=== PATIENT | male | born 1960 | race Caucasian/White ===

== ENCOUNTER 2017-09-11 07:30 | Observation (INO) | payer BC ==
--- NOTE | 2017-09-12 12:59 | PDGENHP ---
History and Physical History and Physical: History and Physical PATIENT SIENA MAE DATE 1960 [ 57 yy 5 mm 25 dd ] ENC DATE 08/21/2017 1:40:00 PM PROVIDER ANA MELTON APPROVED BY ANA MELTON ON 09/12/2017-UPDATED REVISION DATE REFERRAL TYPE Name Vivi Hooper Type PCP/Referring Provider Address [address] Fax [phone] Phone PRIMARY CARE PHYSICIAN Name Larry Ng Type PCP/Referring Provider Address [address] [place], [place] Fax [phone] Phone CC/HPI Describe the reason for today's visit Cervical Spine Aristeo is a 57 year old with a little greater than a one year history of cervicalgia, pain in his right scapula and symptoms in his right thumb and first finger. He is right handed and he feels his right hand is weaker at times. He has a history of a time where he struck his head/neck snowboarding 12 years ago and then fell on his right arm 1.5 years ago. He is unsure if one of those incidents may have contributed to his symptoms. He feels some improvement of symptoms when putting arms over his head at times. 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 He has been participating in PT for 6 months without benefits. He has received one injection with Dr Villegas which offered him 3 days of benefits. He has taken one round of oral steroids which did not reduce his symptoms. He has taken high doses of NSAIDs which offered just minimal benefits. He is now taking 1800mg Gabapentin TID which does offer him some benefits. He presents today for a pre surgical appointment. He is scheduled for ACDF C5-6 , C6-[address] Campos on 09/11/17 at [facility]. ALLERGIES [ 1 ] Date Added: 02/28/2017 1:40:52 PM Allergy: QUINOLONES Note(s): ANTIBIOTICS VITALS [ 1 ] Date: 08/21/2017 3:31:18 PM ADDED BY Chloe Long ON 08/21/2017 2:31: 36 PM Temperature : 97.70 F. 36.5 C ADDED BY Chloe Long ON 08/21/2017 2:31:36 PM Blood Pressure : 138 / 82 ADDED BY Chloe Long ON 08/21/2017 2:31:36 PM Pulse: 74 beats/minute ADDED BY Chloe Long ON 08/21/2017 2:31:36 PM PE Neurological Orientation Oriented to: Person Place Situation Time Upper Extremity Deltoid (C5-6) Bilaterally 5/5 Biceps-Brachialis (C5-6) Bilaterally 5/5 Triceps (C7-8) Bilaterally 5/5 Wrist extensors (C7-8) Bilaterally 5/5 Wrist Flexors (C7-8 T1) Bilaterally 5/5 Digits extensors (C6-8) Bilaterally 5/5 Thenar (C8-T) Bilaterally 5/5 Interossel (C8-T1) Bilaterally 5/5 Deep Tendon Reflexes Brachioradialis (C5-6) Bilaterally 2+ Triceps (C6-8) Bilaterally 2+ Gait Normal gait Respiratory Normal work of breathing Constitutional Well developed Well nourished Alert and oriented Level of distress No acute distress Nourishment Well Nourished Well developed Appearance Healthy appearing ADDITIONAL ENCOUNTER INFORMATION This visit was face to face and 25-39 min long and over 50% of the time was spent on counseling and coordination of care. I agree with current diagnostics and treatment plan ADDED BY Andres Cerda ON 08/22/2017 4:58:48 AM CPT/ICD 91588 - OFFICE OUTPATIENT VISIT 25 MINUTES [Qty] = 1 Click here for External Information related to this code Click here for Additional Information related to this code M48.02-Spinal stenosis, cervical region Click here for External Information related to this code Click here for Additional Information related to this code M54.12-Radiculopathy, cervical region G8427 - [facility] [Qty] = 1 Click here for External Information related to this code Click here for Additional Information related to this code M48.02-Spinal stenosis, cervical region Click here for External Information related to this code Click here for Additional Information related to this code M54.12-Radiculopathy, cervical region ASMT/PLAN/REFERRALS Aristeo has right C6 radicular symptoms involving both surfaces of the 1-3 digits and the right scapula and MRI shows spondylosis and stenosis at C5-6, C6 -7. He has exhausted conservative management including PT, NSAIDs and injection treatments. He has elected to proceed with ACDF C5-6, C6-[address] Campos on . Surgery was canceled due to patient illness and is now rescheduled for 09/23/17. He did get an opinion from Dr Frye regarding disc replacement surgery but he did not find him to be a candidate due to his cervical kyphosis. He is currently taking 1800mg gabapentin daily and understands he will need to wean off following surgery. He wishes not to have a catheter placed for surgery if possible, he will speak with anesthesia and OR team in this regard. Plan: -Follow up two week post op -Call with questions/concerns M48.02 - Spinal stenosis, cervical region
[2017-09-23] MEDS ORDERED: ACETAMINOPHEN 500 MG TAB PO ONE (08:43)
[2017-09-23] MEDS ORDERED: GABAPENTIN 300 MG CAP PO ONE ×2 (08:43)
[2017-09-23] MEDS ORDERED: ceFAZolin 2 GM/SWFI 2 GM/20 ML SYR IVP ONE (08:43)
[2017-09-23] MEDS ORDERED: LIDOCAINE 1% 2 ML INJ ID PRN (08:45)
[2017-09-23] MEDS ORDERED: LR 1,000 ML IV ONE (08:45)
[2017-09-23] MEDS ORDERED: MIDAZOLAM 2 MG/2 ML VIAL IVP ONE (09:23)
--- NOTE | 2017-09-23 09:23 | PDANEPAE ---
ANE History of Present Illness c5-6 acdf with instrumentation ANE Past Medical History - Cardiovascular History Hx Hypertension: Yes Hx Arrhythmias: No Hx Chest Pain: No Hx Coronary Artery / Peripheral Vascular Disease: No Hx CHF / Valvular Disease: No Hx Palpitations: No - Pulmonary History Hx COPD: No Hx Asthma/Reactive Airway Disease: No Hx Recent Upper Respiratory Infection: No Hx Oxygen in Use at Home: No Hx Sleep Apnea: No Sleep Apnea Screening Result - Last Documented: Negative Pulmonary History Comment: ASTHMA SXS W/POST BRONCHIAL ILLNESSES - Neurologic History Hx Cerebrovascular Accident: No Hx Seizures: No Hx Dementia: No - Endocrine History Hx Diabetes: Yes Endocrine History Comment: DM II. A1C 6.3 -2 MOS AGO - Renal History Hx Renal Disorders: No - Liver History Hx Hepatic Disorders: No Hepatic History Comment: ENZYMES SLIGHTLY ELEV IN PAST - Neurological & Psychiatric Hx Hx Neurological and Psychiatric Disorders: No - Cancer History Hx Cancer: Yes Cancer History Comment: BASAL CELL - Congenital Disorder History Hx Congenital Disorders: No - GI History Hx Gastrointestinal Disorders: Yes Gastrointestinal History Comment: DIVERTICULITIS - IN PAST 10 YRS (1-2 EPISODES YRLY) - Other Health History Other Health History: NEG - Chronic Pain History Chronic Pain: Yes (NECK,SHOULDER & NUMBNESS R HAND/FINGERS) - Surgical History Prior Surgeries: HERNIA REPAIR. SCAR REVISION. COLONSOSCOPY ANE Review of Systems Review of systems is: negative Review of Systems: - Exercise capacity Exercise capacity: >=4 METS METS (RN): 4 METS ANE Patient History - Allergies Allergies/Adverse Reactions: ciprofloxacin [From Cipro] Allergy (Verified 05/21/13 02:28) ciprofloxacin HCl [From Cipro] Allergy (Verified 05/21/13 02:28) levofloxacin [From Levaquin] Allergy (Verified 08/14/17 16:46) Rash - Home Medications Home medications: home medication list seen and reviewed Home Medications: Lisinopril [Zestril 10 mg (RX)] 10 mg PO HS 05/21/13 [Last Taken 09/22/17 22:30] Gabapentin [Neurontin 300 MG (*)] 600 mg PO TID 08/07/17 [Last Taken 09/23/17 07 :00] metFORMIN HCL [Glucophage 500 mg (*)] 500 mg PO DAILY 08/07/17 [Last Taken 09/21] - NPO status NPO Since - Liquids (Date): 09/23/17 NPO Since - Liquids (Time): 06:30 NPO Since - Solids (Date): 09/22/17 NPO Since - Solids (Time): 19:00 - Anes Hx Anes Hx: no prior problems - Smoking Hx Smoking Status: Never smoked - Family Anes Hx Family Anes Hx: none Family Hx Anesthesia Complications: NEG ANE Labs/Vital Signs - Labs Result Diagrams: 09/23/17 09:20 - Vital Signs Blood Pressure: 132/91 Heart Rate: 83 Respiratory Rate: 16 O2 Sat (%): 92 Height: 182.88 cm Weight: 99.79 kg ANE Physical Exam - Airway Neck exam: FROM Mallampati Score: Class 3 Mouth exam: normal dental/mouth exam - Pulmonary Pulmonary: no respiratory distress - Cardiovascular Cardiovascular: regular rate and rhythym - ASA Status ASA Status: II ANE Anesthesia Plan Anesthesia Plan: general endotracheal anesthesia
[2017-09-23] MEDS ORDERED: BACITRACIN 50,000 UNITS/10 ML SYR IRR ONE (09:27)
[2017-09-23] MEDS ORDERED: CHLORHEXIDINE GLUC HIBICLENS 118 ML BTL TP ONE (09:27)
[2017-09-23] MEDS ORDERED: BUPIVACAINE 0.25% 30 ML SDV ONE (09:27)
[2017-09-23 09:46] LABS: ANION GAP 14 mEq/L (8-16); CALCIUM 9.6 mg/dL (8.5-10.4); CARBON DIOXIDE 20 mEq/l (22-31); CHLORIDE 104 mEq/L (97-110); CREATININE 0.9 mg/dL (0.7-1.3); GLOMERULAR FILTRATION RATE > 60; GLUCOSE 161 mg/dL (70-100); POTASSIUM 4.7 mEq/L (3.5-5.2); SODIUM 138 mEq/L (134-144)
[2017-09-23] MEDS ORDERED: THROMBIN (BOVINE) 5,000 UNIT VIAL TP ONE (09:49)
--- NOTE | 2017-09-23 10:30 | PDHPUP ---
History & Physical Update H&P update statement: This history and physical update is based on an assessment of the patient which was completed after admission or registration (within 24 hours), but prior to the surgery/procedure. H&P update: H&P reviewed & patient examined, no change in patient's condition since H&P completed
[2017-09-23] MEDS ORDERED: DEXAMETHASONE 4 MG/ML VIAL ONE (10:37)
[2017-09-23] MEDS ORDERED: LIDOCAINE 2% 100 MG/5 ML SYR ONE (10:37)
[2017-09-23] MEDS ORDERED: ROCURONIUM 50 MG/5 ML VIAL ONE (10:37)
[2017-09-23] MEDS ORDERED: ONDANSETRON 4 MG/2 ML VIAL ONE (10:37)
[2017-09-23] MEDS ORDERED: REMIFENTANIL HCL 1 MG VIAL ONE (10:39)
[2017-09-23] MEDS ORDERED: PROPOFOL 200 MG/20 ML VIAL ONE (10:39)
[2017-09-23] MEDS ORDERED: fentaNYL 100 MCG/2 ML INJ ONE ×2 (10:39→15:00)
[2017-09-23] MEDS ORDERED: PROPOFOL/EMULSION 500 MG/50 ML BOTTLE IV ONE (10:39)
[2017-09-23] MEDS ORDERED: HYDROmorphONE/DILAUDID 2 MG/ML INJ ONE (10:39)
[2017-09-23] MEDS ORDERED: BISACODYL 10 MG SUPP PR PRN (10:50)
[2017-09-23] MEDS ORDERED: POLYETHYLENE GLYCOL 3350 17 GM PKT PO PRN (10:50)
[2017-09-23] MEDS ORDERED: ONDANSETRON DISINTEGRATING 4 MG TAB PO PRN (10:50)
[2017-09-23] MEDS ORDERED: MAGNESIUM HYDROXIDE 30 ML UDCUP PO PRN (10:50)
[2017-09-23] MEDS ORDERED: diphenhydrAMINE 25 MG CAP PO PRN (10:50)
[2017-09-23] MEDS ORDERED: ONDANSETRON 4 MG/2 ML VIAL IVP PRN ×2 (10:50→13:24)
[2017-09-23] MEDS ORDERED: LACTULOSE 20 GM/30 ML UDCUP PO PRN (10:50)
[2017-09-23] MEDS ORDERED: PHENYLEPHRINE HCL 100 MCG/ML SYR ONE (11:28)
[2017-09-23] MEDS ORDERED: OXYCODONE/APAP 5/325 TAB PO PRN (13:24)
[2017-09-23] MEDS ORDERED: NALOXONE HCL 0.4 MG/ML INJ IVP PRN (13:24)
[2017-09-23] MEDS ORDERED: MEPERIDINE 25 MG/ML SYR IVP PRN (13:24)
[2017-09-23] MEDS ORDERED: HYDROmorphONE/DILAUDID 1 MG/ML INJ IVP PRN (13:24)
[2017-09-23] MEDS ORDERED: HYDROCODONE/APAP 5/325 TAB PO PRN (13:24)
[2017-09-23] MEDS ORDERED: ACETAMINOPHEN 500 MG TAB PO PRN (13:24)
[2017-09-23] MEDS ORDERED: PROMETHAZINE HCL 25 MG/ML INJ IVP PRN (13:24)
[2017-09-23] MEDS ORDERED: LABETALOL HCL 5 MG/ML 20 ML MDV IVP PRN (13:24)
[2017-09-23] MEDS ORDERED: fentaNYL 100 MCG/2 ML INJ IVP PRN (13:24)
--- NOTE | 2017-09-23 13:26 | POSTANESTH ---
Post Anesthetic Evaluation Cardiovascular Status: Normal, Stable, Similar to Pre-Op Cond Respiratory Status: Normal, Stable, Similar to Pre-op Cond. Level of Consciousness/Mental Status: Can Participate in Eval, Mildly Sleepy, Arousable Pain Control: Adequate, Prn Tx Ordered Nausea/Vomiting Control: Adequate, Prn Tx Ordered Complications Possibly Related to Anesthesia: None Noted
[2017-09-23] MEDS ORDERED: ceFAZolin 2 GM/DEXTROSE 100 ML IV SCH (14:00)
--- NOTE | 2017-09-23 14:48 | POSTOPPROG ---
Post Op Note Date of Operation: 09/23/17 Surgeon: Wagner Campos Journeyman Meat Cutter: Berna Romo NP Anesthesiologist: Agustín Anesthesia: GET(General Endotracheal) Pre-op Diagnosis: Cervical radiculopathy Procedure: ACDF C5-6, C6-7 Inf/Abcess present in the surg proc area at time of surgery?: No Depth: Deep Incisional (Fascial) EBL: 50-100 Total fluids administered: see anesthesia Complications: none Date of Surgery: 09/23/17 Post Op Day: 0 Assessment/Plan: 57 yr old s/p ACDF C5-6, C6-7 for right arm pain Plan: -PT/OT/ST -Wear collar at all times -Pain management -Pending post op xrays in am -Call neurosurgery with any questions/concerns Subjective: Patient waking up in PACU Objective: Waking up in PACU PERRLA 5/5 BUE, BLE sensation intact to light touch BLE Dressing CDI Collar in place Appropriate Neuro Check Frequency Ordered: Yes
[2017-09-23] MEDS: GABAPENTIN 300 MG CAP PO SCH ×2 (16:40→21:37)
[2017-09-23] MEDS: ceFAZolin 2 GM/DEXTROSE 100 ML IV SCH (17:06)
[2017-09-23] MEDS ORDERED: LISINOPRIL 10 MG TAB PO SCH (21:00)
[2017-09-23] MEDS: SENNOSIDES/DOCUSATE SODIUM TAB PO SCH (21:36)
[2017-09-23] MEDS: METHOCARBAMOL 750 MG TAB PO PRN (21:37)
[2017-09-23] MEDS: FAMOTIDINE 20 MG TAB PO SCH (21:38)
[2017-09-23] MEDS: oxyCODONE IR 5 MG TAB PO PRN (23:50)
--- NOTE | 2017-09-24 00:42 | GOP ---
[f rep st] OPERATIVE REPORT DATE OF OPERATION: 09/23/2017 SURGEON: Harley Campos MD STRUCTURAL METAL FABRICATOR APPRENTICE: Berna Romo, Nurse Practitioner. PREOPERATIVE DIAGNOSIS: Cervical spondylosis with radiculopathy, C5-6, C6-7, with a right cervical r adiculopathy. POSTOPERATIVE DIAGNOSIS: Cervical spondylosis with radiculopathy, C5-6, C6-7, with a right cervical radiculopathy. PROCEDURE PERFORMED: Anterior cervical diskectomy with decompression and arthrodesis at C5-6, C6-7; placement of biomechanical intervertebral device C5-6, C6-7; same incision bone graft harvest; anteri or cervical instrumentation C5, C6, C7; microscope. FINDINGS: ESTIMATED BLOOD LOSS: 50 cc. INDICATIONS: Patient is a 57-year-old who has a long history of a right-sided cervical radiculopathy that is unresponsive to conservative measures and he desired to have surgery. The risks and complic ations including the risk of adjacent segment disease, future spine surgery, pseudarthrosis, nerve in jury, esophageal injury, carotid injury, recurrent laryngeal nerve injury, hoarseness, dysphagia were discussed. He knew there was a chance that surgery would fail to give him any clinical benefit and the pain could continue. He wanted to proceed despite all these risks. We then briefly discussed th e risk of catastrophic events, although the risk of a catastrophe is quite low. He still wanted to p roceed. DESCRIPTION OF PROCEDURE: The patient was taken to the operating room, placed in supine position. G eneral anesthesia was begun. A large midline shoulder roll was placed. His arms were secured at his sides. His neck was sterilely prepped and draped in the usual fashion. We made a transverse incisi on on the left side of the patient's neck in a dominant neck crease. The subcutaneous tissue was dis sected using Bovie cautery down through the platysma. We then used a combination of sharp and blunt dissection to work our way medial through the sternocleidomastoid and down the prevertebral space. W malia actually found a better plane of dissection down the prevertebral space inferior to the omohyoid mu scle, but then after we developed that plane, the omohyoid was going to block access to C5-6, althoug h we had good visualization at C6-7. We therefore dissected on the rostral side of the omohyoid musc le. There was also a large superficial vein directly underneath the platysma muscle that was bridgin g across our area of exposure with this more rostral dissection pathway and we ended up sacrificing t his nerve. We tied it off and divided it. There was no significant bleeding from it at all. We exp osed the spine at C5-6, C6-7, dissected the longus colli muscles off the spine at C5-6, C6-7. There were huge ventral osteophytes at C5-6, and these were all completely removed. We worked our way wide ly out beyond the uncinate process really until the end of the ventral osteophyte and it was all comp letely removed. At C6-7, there was some spondylosis as well but not nearly the size of osteophytes t here. After mobilizing the longus colli muscles, we placed distraction pins at C6-7, distracted at t hat location and removed the C6-7 disk completely. We then drilled and harvested subchondral bone at that level for autologous grafting purposes. The bony there was somewhat softer in the disk space w as widely opened by our exposure. A 9 mm device was sized for that space. We then opened the tanning wheel operator ior longitudinal ligament, decompressed the thecal sac and the neural foramina bilaterally. On the p atient's right-hand side, there was foraminal stenosis for the exiting nerve and a nice decompression was obtained. There was even a small fragment of soft disk on top of the C7 nerve. I was very happ y with the decompression. We chose a 9 mm device, packed it with bone autograft, and inserted it at C6-7. We moved our distraction pins and did the same at C5-6, where we distracted C5-6, removed the disk and the cartilaginous endplate. This location was more typical. It was a degenerative disk and the intervertebral space was much narrower. We drilled and harvested subchondral bone from this loc ation. We had a large amount of bone graft. We sized for a 7 mm device at C5-C6. We then opened th e PLL and decompressed the thecal sac and the neural foramen bilaterally. The right-sided neural for amen was exceptionally tight and its exiting C6 nerve root was very irritable. We used a 1.5 and a 2 mm Kerrison punch for the decompression, and the nerve in the arm twitches when we were doing that, but we actually did not completely expose the nerve root sleeve. We left the epidural veins and what not intact on top of the nerve root sleeve, but an excellent wide decompression of the neural forame n was performed for quite a distance. I would say about 9 mm from the takeoff of the C6 root from th e thecal sac itself, the length of about 3 of our black hook instruments. We then took the intervert ebral device, packed it with bone autograft, and inserted it at C6-7. A great fit was obtained. We then fine tuned the ventral surface of the vertebral body for acceptance of the plate, and chose a 44 mm plate. A single screw was placed at C5. A single screw at C7. An x-ray was taken. They were i n excellent position. Our intervertebral devices were in excellent position. We then placed the rem aining 4 screws for a total of 6 screws and locked all of them according to company specification. A final x-ray was taken. The plate was in excellent position. We then placed some bone autograft beatriz tral to the device at C6-7. We did not place any additional bone graft at C5-6. We placed some Adam jarett with epinephrine in the wound after obtaining meticulous hemostasis and then closed the incision in multiple layers using Vicryl sutures. Steri-Strips were applied the skin. The patient was rever sed from anesthesia, extubated, and transferred to the recovery room in stable condition. There were no complications. COMPLICATIONS: None. INSTRUMENTATION: [employer] Snowcap plate with a Josefa Peek intervertebral device, to 7 mm at C5-6, and a 9 mm at C6-7. /[id number]/MODL
[2017-09-24] MEDS: ceFAZolin 2 GM/DEXTROSE 100 ML IV SCH (01:03)
[2017-09-24] MEDS: oxyCODONE IR 5 MG TAB PO PRN (04:04)
[2017-09-24] MEDS: METHOCARBAMOL 750 MG TAB PO PRN ×2 (04:04→10:20)
--- NOTE | 2017-09-24 08:11 | NEUSURGPN ---
Date of Surgery: 09/23/17 Post Op Day: 1 Assessment/Plan: 57 yr old s/p ACDF C5-6, C6-7 for right arm pain Plan: -PT/OT/ST -Wear collar at all times -Pain management, well controlled with PO medications -Post op xrays this am -Patient may dc home today after xrays completed, Oxycodone and Robaxin scripts given to yesterday -Call neurosurgery with any questions/concerns Subjective: Right arm pain slightly improved Objective: AxO x3 PERRLA 5/5 BUE, BLE Sensation intact to light touch BLE Dressing CDI Wearing collar as directed Neuro Check Frequency: per routine Urinary Catheter in Place: No - Physician Discussed Patient with .: Andres Patient Seen by : Andres Neurosurgery Physical Exam - Vitals, I&O, Labs I and O 09/23/17 09/24/17 09/25/17 05:59 05:59 05:59 Intake Total 2165 Balance 2165 Weight 99.79 kg Intake: Oral (ml) 1050 IV Intake (ml) 1000 IV Infused (ml) 115 ceFAZolin 2 GM/DEXTROSE 115 100 ml @ 200 mls/hr IV Q8H [facility] Rx#:[id number] Other: Intake Quantity Yes Sufficient Number of Voids Toilet 1 Vital Signs Temp Pulse Resp BP Pulse Ox 36.6 C 80 19 128/81 H 96 09/24/17 04:00 09/24/17 04:00 09/24/17 04:00 09/24/17 04:00 09/24/17 04:00 Laboratory Results 09/23/17 09:20 ICD10 Worksheet Patient Problems: Problems Problem Status Onset Cervical radicular pain Acute - ICD10 Problem Qualifiers (1) Cervical radicular pain
[2017-09-24] MEDS: GABAPENTIN 300 MG CAP PO SCH (08:47)
[2017-09-24] MEDS: FAMOTIDINE 20 MG TAB PO SCH (08:47)
[2017-09-24] MEDS: SENNOSIDES/DOCUSATE SODIUM TAB PO SCH (08:48)
[2017-09-24] MEDS ORDERED: metFORMIN HCL 500 MG TAB PO SCH (09:00)
[2017-09-24 11:18] VITALS: BP 151/76; PULSE 92; RESP 18; TEMP 99.3; O2SAT 89
--- NOTE | 2017-09-24 12:39 | ASDISCHSUM ---
Discharge Information Plan Status:Home with No Needs Medically Cleared to Leave: Discharge Date:09/24/2017 12:34 PM CM D/C Disposition:Home, Routine, Self-Care ADT D/C Disposition:Home, Routine, Self-Care Projected Discharge Date:09/24/2017 12:34 PM Transportation at D/C: Discharge Delay Reason: Follow-Up Date:09/24/2017 12:34 PM Discharge Slot: Final Diagnosis: Placement Information Patient Contact Information Contact Name:MICHELLE Relationship: Address:[address] City:[place] Alternate Phone: [facility]/Zip Code:[place] [address] Email: Financial Information Financial Class:HMO and PPO Plans Primary Plan Desc: OUT OF STATE PPO Primary Plan Number:[id number] Secondary Plan Desc: Secondary Plan Number: Assessment Information Intervention Information
[2017-09-26] MEDS ORDERED: ENOXAPARIN 40 MG/0.4 ML SYR SC SCH (09:00)
== END 2017-09-24 12:34 | disposition home or self-care (01) ==
LOC: EDSTATUS 07:30 → F3N 09-23 08:37
PROVIDERS: ADMIT Neurological Surgery; ATTEND Neurological Surgery
DX: M48.02 Spinal stenosis, cervical region (principal); M43.02 Spondylolysis, cervical region; M54.12 Radiculopathy, cervical region; E11.9 Type 2 diabetes mellitus without complications; I10 Essential (primary) hypertension
CPT/HCPCS: 22551; 22552; 72040; 76001; 92610; 97161; 97165; G0378; C1713; J0171; J0690; J1100; J1170; J2001; J2250; J2370; J2405; J2704; J3010

== ENCOUNTER 2017-12-19 22:59 | Emergency (ER) | payer BC, OTHER ==
--- NOTE | 2017-12-20 01:15 | EDPHY ---
H & P Stated Complaint: Pain in L shoulder C5-7 fusion 11 weeks ago. Time Seen by Provider: 12/20/17 00:08 HPI/ROS: HPI The patient presents with left-sided shoulder pain which has been present for the last 3 weeks and getting progressively worse. He reports an aching pain that starts in his shoulder in can radiate down his arm to his elbow. This is worse with changes in position. He denies any numbness or tingling of his extremity. He does not have any weakness that he knows of. He is status post C5 through C7 cervical spinal fusion performed on October 29. He previously had right-sided radicular symptoms which have now subsided. He is taking his usual pain medications but does not have relief of his symptoms. Dr. Campos is his surgeon and is ordering outpatient MRI of his C-spine. The patient does not have any bowel or bladder changes. He has no prior history of shoulder pain and denies any trauma.. REVIEW OF SYSTEMS Constitutional: No fever, no chills. Eyes: No discharge. ENT: No sore throat. Cardiovascular: No chest pain, no palpitations. Respiratory: No cough, no shortness of breath. Gastrointestinal: No abdominal pain, no vomiting. Genitourinary: No hematuria. Musculoskeletal: No back pain. Skin: No rashes. Neurological: No headache. PMHx: C5 through C7 spinal fusion performed October for 2nd Soc Hx: Lives at home with his PHYSICAL General Appearance: Alert, no distress Eyes: Pupils equal and round no pallor or injection ENT, Mouth: Mucous membranes moist Respiratory: There are no retractions, lungs are clear to auscultation Cardiovascular: Regular rate and rhythm Gastrointestinal: Abdomen is soft and non-tender, no masses, bowel sounds normal Neurological: A&O, 5/5 strength of upper and lower extremities which is symmetric, sensation is intact to light touch throughout Skin: Warm and dry, no rashes Musculoskeletal: Neck is supple with no midline tenderness Extremities: symmetrical, limited range of motion of left shoulder secondary to pain Psychiatric: Patient is oriented X 3, there is no agitation Source: Patient Exam Limitations: No limitations - Personal History Current Tetanus/Diphtheria Vaccine: Yes Current Tetanus Diphtheria and Acellular Pertussis (TDAP): Yes - Medical/Surgical History Hx Asthma: Yes Hx Chronic Respiratory Disease: No Hx Diabetes: Yes Hx Cardiac Disease: No Hx Renal Disease: No Hx Cirrhosis: No Hx Alcoholism: Yes Hx HIV/AIDS: No Hx Splenectomy or Spleen Trauma: No Other PMH: DM, HTN, Nerve pain, Diverticulitis, cervical spine fusion. - Social History Smoking Status: Never smoked Constitutional: Initial Vital Signs Temperature (C) 37.3 C 12/19/17 23:05 Heart Rate 103 H 12/19/17 23:05 Respiratory Rate 17 12/19/17 23:05 Blood Pressure 146/81 H 12/19/17 23:05 O2 Sat (%) 93 12/19/17 23:05 O2 Delivery Mode Room Air O2 (L/minute) 2 Allergies/Adverse Reactions: ciprofloxacin [From Cipro] Allergy (Verified 05/21/13 02:28) ciprofloxacin HCl [From Cipro] Allergy (Verified 05/21/13 02:28) levofloxacin [From Levaquin] Allergy (Verified 08/14/17 16:46) Rash Home Medications: Medication Instructions Recorded Lisinopril [Zestril 10 mg (*)] 10 mg PO HS 05/21/13 Gabapentin [Neurontin 300 MG (*)] 600 mg PO TID 08/07/17 metFORMIN HCL [Glucophage 500 mg 500 mg PO DAILY 08/07/17 (*)] Methocarbamol [Robaxin 750 mg (*)] 750 mg PO QID PRN #60 tab 09/24/17 oxyCODONE HCL/ACETAMINOPHEN 1 each PO Q6H PRN #30 tablet 12/20/17 [Oxycodone-Acetaminophen 5-325] Medical Decision Making Differential Diagnosis: 57-year-old male who is about 11 weeks status post C5 through C7 spinal fusion presents with left-sided arm pain. This is without any weakness or paresthesias. The pain seemed to begin in his shoulder. On exam, he has limited range of motion of his arm secondary to pain. Differential diagnosis includes nerve root compression from his operation, rotator cuff injury, tendinopathy. Plan to treat his pain here, if it improves, he can be discharged home. Given absence of weakness I do not think we need to perform MRI tonight. In the emergency department, patient received morphine with some improvement in his symptoms. I discussed the case with Dr. Rivers on-call for Neurosurgery. He agrees that given the lack of patient's weakness, he can be safely discharged with follow up with his primary neurosurgeon. He does recommend a dose of Decadron to see if this helps the patient's pain. I have discussed this with the patient and will discharge him home. - Data Points Medications Given: Discontinued Medications Dexamethasone (Decadron Intensol) 10 mg PO EDNOW ONE Stop: 12/20/17 02:00 Last Admin: 12/20/17 02:35 Dose: Not Given Dexamethasone (Decadron) 10 mg PO EDNOW ONE Stop: 12/20/17 02:31 Last Admin: 12/20/17 02:30 Dose: 10 mg Morphine Sulfate (Morphine) 4 mg IM EDNOW ONE Stop: 12/20/17 00:15 Last Admin: 12/20/17 00:46 Dose: 4 mg Oxycodone/Acetaminophen (Percocet 5/325mg Prepack#4) 1 btl TAKEHOME EDNOW ONE Stop: 12/20/17 02:14 Last Admin: 12/20/17 02:30 Dose: 1 btl Departure - Departure Disposition: Home, Routine, Self-Care Clinical Impression: Left shoulder pain Qualifiers: Chronicity: acute Qualified Code(s): M25.512 - Pain in left shoulder Condition: Good Instructions: Oxycodone/Acetaminophen (By mouth), Shoulder Pain (ED) Additional Instructions: The cause of your pain is not entirely clear. Because of this I would like for you to follow up with Dr. Campos in 1-2 days. I have also given you the information for orthopedics if your evaluation with Dr. Campos is unremarkable. It is possible the pain might be coming from the shoulder joint. Referrals: Larry Ng MD [Primary Care Provider] - As per Instructions Wagner Campos MD [Medical Doctor] - As per Instructions Lorelei Ontiveros MD [Medical Doctor] - As per Instructions Prescriptions: oxyCODONE HCL/ACETAMINOPHEN [Oxycodone-Acetaminophen 5-325] 1 each PO Q6H PRN # 30 tablet PRN Reason: Pain, Breakthrough
[2017-12-20] MEDS ORDERED: DEXAMETHASONE 1 MG/ML 30 ML BOTTLE PO ONE (01:59)
[2017-12-20] MEDS ORDERED: OXYCODONE/APAP 5/325MG PREPACK#4 BTL TAKEHOME ONE (02:13)
[2017-12-20] MEDS ORDERED: DEXAMETHASONE 4 MG TAB ONE (02:15)
[2017-12-20] MEDS ORDERED: DEXAMETHASONE 4 MG TAB PO ONE (02:30)
[2017-12-20 02:38] VITALS: BP 126/80; PULSE 86; RESP 18; TEMP 97.9; O2SAT 84
== END 2017-12-20 02:40 | disposition home or self-care (01) ==
DX: M25.512 Pain in left shoulder (principal); E11.9 Type 2 diabetes mellitus without complications; I10 Essential (primary) hypertension; J45.909 Unspecified asthma, uncomplicated; Z79.84 Long term (current) use of oral hypoglycemic drugs
CPT/HCPCS: J2270

== ENCOUNTER → 2018-09-04 | Outpatient (CLI) | payer OTHER | LOC: BMCIMAGING 15:42 | PROVIDERS: ATTEND Internal Medicine | DX: M25.572 Pain in left ankle and joints of left foot (principal); M79.89 Other specified soft tissue disorders ==